=== PATIENT | female | born 1985 | race Caucasian/White ===

== ENCOUNTER 2017-11-30 18:31 | Emergency (ER) | payer MEDICAID ==
[~2017-11-30] VITALS: Ht 160 cm; Wt 62.0 kg
[2017-11-30] MEDS ORDERED: ACET-2708 PO (18:59)
[2017-11-30] MEDS ORDERED: IBUPROFEN 600MG TABLET PO ONE (19:00)
[2017-11-30 19:03] VITALS: BP 122/85
== END 2017-11-30 23:31 | disposition home or self-care (01) ==
LOC: ER 23:25
DX: K02.9 Dental caries, unspecified (principal); K04.7 Periapical abscess without sinus
CPT/HCPCS: 81025; 99283

== ENCOUNTER 2018-07-22 13:50 | Emergency (ER) | payer MEDICAID ==
[~2018-07-22] VITALS: Ht 157.5 cm; Wt 56.0 kg
[~2018-07-22 13:50] MED LIST: ACET-2708 PO
[2018-07-22] MEDS ORDERED: CYCLOBENZAPRINE 10MG TABLET PO ONE (15:15)
[2018-07-22 15:16] VITALS: BP 113/77
== END 2018-07-22 15:17 | disposition home or self-care (01) ==
LOC: ER 13:50
DX: M54.5 Low back pain (principal); F12.90 Cannabis use, unspecified, uncomplicated; Z98.890 Other specified postprocedural states; Z90.49 Acquired absence of other specified parts of digestive tract; Z79.899 Other long term (current) drug therapy
CPT/HCPCS: 99282